=== PATIENT | female | born 1955 | race Caucasian/White ===

== ENCOUNTER 2020-09-05 22:54 | Inpatient (IN) | payer MEDICARE, OTHER ==
[~2020-09-05] VITALS: Ht 165.1 cm; Wt 71.2 kg
[~2020-09-05 22:54] MED LIST: LEVAQUIN750 MG PO
[2020-09-05 23:38] LABS: RED BLOOD COUNT 4.8 M/UL (4.00-5.10); WHITE BLOOD COUNT 6.1 K/UL (4.5-11.0)
[2020-09-05 23:55] LABS: BUN/CREATININE RATIO 21 (0-10)
[2020-09-06] MEDS ORDERED: PLAVIX 75 MG TA75 MG PO (02:48)
[2020-09-06] MEDS ORDERED: PROTONIX 40 MG40 M1 PO (02:49)
[2020-09-06] MEDS ORDERED: ASPIRIN CHEWABL81 MG PO (02:49)
[2020-09-06] MEDS ORDERED: LEVOTHYROXINE150 MC1 PO (02:49)
[2020-09-06] MEDS ORDERED: VITAMIN D 40400 UNIT PO (02:50)
[2020-09-06] MEDS ORDERED: LIPITOR80 MG PO (02:51)
[2020-09-07 13:11] LABS: HEMOGLOBIN 13.4 gm/dl (12.3-15.3); RED BLOOD COUNT 4.64 M/UL (4.00-5.10)
[2020-09-07 13:31] LABS: BUN/CREATININE RATIO 19 (0-10)
--- NOTE | 2020-09-07 23:39 | NUR ---
09/07/202014 INSTRUCTED PT ON NOTHING BY MOUTH AFTER MIDNIGHT. PT VERBALIZED UNDERSTANDING.
[2020-09-08 04:16] LABS: HEMOGLOBIN 12.3 gm/dl (12.3-15.3); RED BLOOD COUNT 4.29 M/UL (4.00-5.10)
[2020-09-08 04:19] LABS: WHITE BLOOD COUNT 4.3 K/UL (4.5-11.0)
[2020-09-08 04:36] LABS: BUN/CREATININE RATIO 18 (0-10)
--- NOTE | 2020-09-08 14:35 | NUR ---
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
[2020-09-09 03:26] LABS: HEMOGLOBIN 12.1 gm/dl (12.3-15.3); RED BLOOD COUNT 4.23 M/UL (4.00-5.10)
[2020-09-09 03:36] LABS: WHITE BLOOD COUNT 9.5 K/UL (4.5-11.0)
[2020-09-09 04:08] LABS: BUN/CREATININE RATIO 22 (0-10)
[2020-09-09] MEDS ORDERED: COREG6.25 MG PO (09:58)
[2020-09-09] MEDS ORDERED: ZESTRIL10 MG PO (09:58)
== END 2020-09-09 16:07 | disposition home or self-care (01) | DRG 247 ==
LOC: ER1 22:54 → MED SURG 4 09-06 00:07 → CDU 09-06 00:07 → MED SURG 4 09-06 02:42 → PROG CARE 09-08 17:20
PROVIDERS: Internal Medicine; Physician Assistant; ADMIT Internal Medicine
PROC: 027034Z Dilation of Coronary Artery, One Artery with Drug-eluting Intraluminal Device, Percutaneous Approach (ICD-10-PCS; principal; 2020-09-08)
PROC: B2111ZZ Fluoroscopy of Multiple Coronary Arteries using Low Osmolar Contrast (ICD-10-PCS; 2020-09-08)
PROC: 4A023N7 Measurement of Cardiac Sampling and Pressure, Left Heart, Percutaneous Approach (ICD-10-PCS; 2020-09-08)
DX: I25.110 Atherosclerotic heart disease of native coronary artery with unstable angina pectoris (principal); I25.5 Ischemic cardiomyopathy; R07.9 Chest pain, unspecified; E66.01 Morbid (severe) obesity due to excess calories; E87.6 Hypokalemia; D64.9 Anemia, unspecified; F17.200 Nicotine dependence, unspecified, uncomplicated; E03.9 Hypothyroidism, unspecified; K52.9 Noninfective gastroenteritis and colitis, unspecified; F41.9 Anxiety disorder, unspecified; Z96.698 Presence of other orthopedic joint implants; Z20.822 Contact with and (suspected) exposure to COVID-19; I44.7 Left bundle-branch block, unspecified; J44.9 Chronic obstructive pulmonary disease, unspecified; E78.5 Hyperlipidemia, unspecified; Z86.73 Personal history of transient ischemic attack (TIA), and cerebral infarction without residual deficits; Z98.1 Arthrodesis status; Z83.3 Family history of diabetes mellitus; Z68.30 Body mass index [BMI] 30.0-30.9, adult; Z82.49 Family history of ischemic heart disease and other diseases of the circulatory system; Z80.9 Family history of malignant neoplasm, unspecified; Z82.5 Family history of asthma and other chronic lower respiratory diseases
CPT/HCPCS: ECHO; 36415; 71045; 80048; 80053; 80061; 82550; 82553; 82962; 83036; 83874; 83880; 84439; 84443; 84484; 84550; 85025; 85347; 85610; 85730; 93005; 93306; 96374; 96375; 99152; 99285; C1725; C1769; C1874; C1887; C9600; G0378; J0461; J1644; J2250; J2930; J3010; J3480; J7030; J7040; Q9967; U0002

== ENCOUNTER 2020-10-19 21:32 | Observation (INO) | payer MEDICARE, OTHER ==
[~2020-10-19] VITALS: Ht 165.1 cm; Wt 72.6 kg
[~2020-10-19 21:32] MED LIST changes: +ASPIRIN CHEWABL81 MG PO; +COREG6.25 MG PO; +LEVOTHYROXINE150 MC1 PO; +LIPITOR80 MG PO; +PLAVIX 75 MG TA75 MG PO; +PROTONIX 40 MG40 M1 PO; +VITAMIN D 40400 UNIT PO; +ZESTRIL10 MG PO
[2020-10-19 22:17] LABS: HEMOGLOBIN 13.7 gm/dl (12.3-15.3); RED BLOOD COUNT 4.68 M/UL (4.00-5.10)
[2020-10-19 22:33] LABS: BUN/CREATININE RATIO 24 (0-10)
[2020-10-20] MEDS ORDERED: BUSPIRONE HCL15 MG PO (04:07)
[2020-10-20] MEDS ORDERED: LASIX TAB 20 MG20 MG PO (04:09)
[2020-10-20] MEDS ORDERED: VENTOLIN HFA 66.7 GM INH (04:10)
[2020-10-20] MEDS ORDERED: ALBUTEROL2.5 MG/3 M INH (04:11)
[2020-10-20] MEDS ORDERED: COREG6.25 MG PO (10:48)
[2020-10-20] MEDS ORDERED: LISINOPRIL10 MG PO (10:51)
[2020-10-20] MEDS ORDERED: CARVEDILOL3.125 MG PO (10:59)
== END 2020-10-20 13:20 | disposition home or self-care (01) ==
LOC: ER1 21:32 → PROG CARE 10-20 00:29 → CDU 10-20 00:29 → PROG CARE 10-20 03:52
PROVIDERS: Family Medicine; ADMIT Internal Medicine Infectious Disease
DX: I25.5 Ischemic cardiomyopathy (principal); I44.7 Left bundle-branch block, unspecified; I25.10 Atherosclerotic heart disease of native coronary artery without angina pectoris; E03.9 Hypothyroidism, unspecified; I10 Essential (primary) hypertension; E78.5 Hyperlipidemia, unspecified; K21.9 Gastro-esophageal reflux disease without esophagitis; J44.9 Chronic obstructive pulmonary disease, unspecified; F17.210 Nicotine dependence, cigarettes, uncomplicated; Z95.5 Presence of coronary angioplasty implant and graft; Z86.73 Personal history of transient ischemic attack (TIA), and cerebral infarction without residual deficits; Z99.81 Dependence on supplemental oxygen; Z98.1 Arthrodesis status; Z98.890 Other specified postprocedural states; Z91.041 Radiographic dye allergy status; Z88.0 Allergy status to penicillin; Z88.8 Allergy status to other drugs, medicaments and biological substances; Z79.82 Long term (current) use of aspirin; Z79.02 Long term (current) use of antithrombotics/antiplatelets; Z79.899 Other long term (current) drug therapy; Z20.822 Contact with and (suspected) exposure to COVID-19
CPT/HCPCS: 71045; 80053; 82550; 82553; 83735; 83874; 84484; 85025; 93005; 94664; 94760; 96374; 96376; 99285; G0378; U0002

== ENCOUNTER → 2020-12-09 | Outpatient (CLI) | payer MEDICARE, OTHER ==
[~2020-12-09] MED LIST changes: +ALBUTEROL2.5 MG/3 M INH; +BUSPIRONE HCL15 MG PO; +CARVEDILOL3.125 MG PO; +LASIX TAB 20 MG20 MG PO; +LISINOPRIL10 MG PO; +VENTOLIN HFA 66.7 GM INH
== END ==
LOC: HEART 5 13:49
DX: I25.10 Atherosclerotic heart disease of native coronary artery without angina pectoris (principal); I08.0 Rheumatic disorders of both mitral and aortic valves; Z95.5 Presence of coronary angioplasty implant and graft
CPT/HCPCS: 93306

== ENCOUNTER → 2021-03-13 | Outpatient (CLI) | payer MEDICARE, OTHER ==
[2021-03-13 12:52] LABS: HEMOGLOBIN 14.2 gm/dl (12.3-15.3); RED BLOOD COUNT 4.79 M/UL (4.00-5.10); WHITE BLOOD COUNT 5.6 K/UL (4.5-11.0)
[2021-03-13 13:12] LABS: BUN/CREATININE RATIO 30 (0-10)
== END ==
LOC: RAD 11:18
PROVIDERS: Internal Medicine Cardiovascular Disease
DX: I50.22 Chronic systolic (congestive) heart failure (principal); I25.5 Ischemic cardiomyopathy; I44.7 Left bundle-branch block, unspecified
CPT/HCPCS: 36415; 71046; 80048; 85025

== ENCOUNTER 2021-03-17 06:56 | Outpatient (CLI) | payer MEDICARE, OTHER ==
[~2021-03-17] VITALS: Ht 165.1 cm; Wt 67.8 kg
[2021-03-17] MEDS ORDERED: LEVOFLOXACIN500 MG PO (13:41)
[2021-03-17] MEDS ORDERED: HYDROCODON-ACE1 EAC4 PO (13:41)
[2021-03-17] MEDS ORDERED: CLINDAMYCIN HC300 MG PO (13:41)
== END 2021-03-18 10:14 | disposition home or self-care (01) ==
LOC: CATH 06:56 → PROG CARE 14:07 → CATH 03-18 10:14
DX: I42.0 Dilated cardiomyopathy (principal); I25.5 Ischemic cardiomyopathy; I25.10 Atherosclerotic heart disease of native coronary artery without angina pectoris; I11.0 Hypertensive heart disease with heart failure; I50.22 Chronic systolic (congestive) heart failure; D64.9 Anemia, unspecified; I44.7 Left bundle-branch block, unspecified; J44.9 Chronic obstructive pulmonary disease, unspecified; F17.210 Nicotine dependence, cigarettes, uncomplicated; E78.5 Hyperlipidemia, unspecified; I25.2 Old myocardial infarction; Z79.82 Long term (current) use of aspirin; Z79.899 Other long term (current) drug therapy; Z90.49 Acquired absence of other specified parts of digestive tract; Z90.710 Acquired absence of both cervix and uterus; Z98.890 Other specified postprocedural states; Z88.0 Allergy status to penicillin; Z88.8 Allergy status to other drugs, medicaments and biological substances
CPT/HCPCS: 33225; 33249; 71045; 93005; 93641; 94640; 94664; 94760; 99152; 99153; C1769; C1777; C1882; C1898; C1900; J1200; J1644; J2250; J3010; J3370; J7040; J7050; J7070; Q9965

== ENCOUNTER → 2021-04-27 | Outpatient (CLI) | payer MEDICARE, OTHER ==
[~2021-04-27] MED LIST changes: +CLINDAMYCIN HC300 MG PO; +HYDROCODON-ACE1 EAC4 PO; +LEVOFLOXACIN500 MG PO
== END ==
LOC: HEART 5 04-20 10:00 → ECHO 13:27
DX: I25.10 Atherosclerotic heart disease of native coronary artery without angina pectoris (principal); I51.7 Cardiomegaly
CPT/HCPCS: ECHO; 93306

== ENCOUNTER → 2021-07-16 | Outpatient (CLI) | payer MEDICARE, OTHER | LOC: EXRD 10:26 | DX: E03.9 Hypothyroidism, unspecified (principal) | CPT/HCPCS: 76536 ==

== ENCOUNTER 2021-11-13 14:11 | Emergency (ER) | payer MEDICARE, OTHER | END 2021-11-13 16:31 | disposition home or self-care (01) | LOC: ER1 14:11 | DX: S63.501A Unspecified sprain of right wrist, initial encounter (principal); M25.561 Pain in right knee; I11.9 Hypertensive heart disease without heart failure; I25.2 Old myocardial infarction; J44.9 Chronic obstructive pulmonary disease, unspecified; F17.210 Nicotine dependence, cigarettes, uncomplicated; Z86.73 Personal history of transient ischemic attack (TIA), and cerebral infarction without residual deficits; W01.0XXA Fall on same level from slipping, tripping and stumbling without subsequent striking against object, initial encounter | CPT/HCPCS: 73110; 73130; 73564; 73590; 99283 ==

== ENCOUNTER 2022-01-16 17:45 | Emergency (ER) | payer MEDICARE, OTHER ==
[2022-01-16 18:24] LABS: HEMOGLOBIN 13.3 gm/dl (12.3-15.3); RED BLOOD COUNT 4.54 M/UL (4.00-5.10); WHITE BLOOD COUNT 5.6 K/UL (4.5-11.0)
[2022-01-16 18:40] LABS: BUN/CREATININE RATIO 18 (0-10)
[2022-01-16] MEDS ORDERED: ZOFRAN ODT 4 MG4 MG PO (22:36)
[2022-01-16] MEDS ORDERED: BENTYL 20MG TAB20 MG PO (22:36)
== END 2022-01-16 22:30 | disposition home or self-care (01) ==
LOC: ER1 17:45
PROVIDERS: Nurse Practitioner
DX: R10.11 Right upper quadrant pain (principal); R10.811 Right upper quadrant abdominal tenderness; I25.2 Old myocardial infarction; E78.5 Hyperlipidemia, unspecified; I10 Essential (primary) hypertension; F17.210 Nicotine dependence, cigarettes, uncomplicated; J44.9 Chronic obstructive pulmonary disease, unspecified; Z95.5 Presence of coronary angioplasty implant and graft; Z86.73 Personal history of transient ischemic attack (TIA), and cerebral infarction without residual deficits; Z95.810 Presence of automatic (implantable) cardiac defibrillator; Z79.82 Long term (current) use of aspirin; Z79.02 Long term (current) use of antithrombotics/antiplatelets; Z88.6 Allergy status to analgesic agent; Z88.0 Allergy status to penicillin; Z88.8 Allergy status to other drugs, medicaments and biological substances
CPT/HCPCS: 71045; 80053; 80076; 81001; 82550; 82553; 83605; 83690; 84484; 85025; 93005; 99284